=== PATIENT | male | born 1990 | race Caucasian/White ===

== ENCOUNTER 2020-04-20 17:44 | Emergency (ER) | payer MEDICAID, SELFPAY ==
[2020-04-20 18:10] VITALS: BP 140/95; PULSE 96; RESP 14; TEMP 36.8; O2SAT 99
[2020-04-20 18:49] LABS: Basophils Absolute Auto 0.1 K/mm3 (0.0-0.1); Basophils Percent Auto 0.4 % (0.2-1.2); Eosinophils Absolute Auto 0.8 K/mm3 (0-0.3); Hematocrit 42.7 % (42.0-52.0); Hemoglobin 14.3 g/dL (14.0-18.0); Immature Granulocyte Absolute 0.19 K/mm3 (0.00-0.031); Lymphocytes Percent Auto 23.1 % (18.3-44.2); Mean Corpuscular HGB Conc 33.5 g/dl (32-36); Mean Corpuscular Hemoglobin 30.5 pg (26-34); Mean Platelet Volume 9.1 fl (7.4-10.4); Monocytes Absolute Auto 1.4 K/mm3 (0.1-0.6); Monocytes Percent Auto 7.1 % (2.6-8.5); Neutrophils Absolute Auto 12.6 K/mm3 (1.3-6.7); Neutrophils Percent Auto 64.4 % (45.5-73.1); Platelet Count Result 389 k/mm3 (150-375); Red Blood Count 4.69 M/mm3 (4.6-6.20); Red Cell Distribution Width 13.1 % (11.5-14.5); White Blood Count 19.5 K/mm3 (4.5-10.0)
--- NOTE | 2020-04-20 18:56 | PC.NURSE ---
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
[2020-04-20 19:06] LABS: Alanine Aminotransferase 27 U/L (4-50); Albumin Level 3.8 g/dL (3.5-5.1); Alkaline Phosphatase 71 U/L (38-126); Anion Gap 5 mmol/L (8-16); Aspartate Amino Transferase 26 U/L (17-59); Bilirubin,Total 0.2 mg/dL (0.2-1.3); Blood Urea Nitrogen 7 mg/dL (9-20); CRP 1.2 mg/dL (<1.0); Calcium 9.2 mg/dL (8.4-10.2); Carbon Dioxide 31 mmol/L (22-30); Chloride 104 mmol/L (98-107); Estimated CRCL calculation 127 ml/min; Estimated Glomerular Filt Rate > 60; Glucose 88 mg/dL (75-110); Potassium 4.2 mmol/L (3.4-5.0); Sodium 140 mmol/L (137-145)
--- NOTE | 2020-04-20 19:31 | PC.NURSE ---
report received at this time. pt resting on stretcher with antibiotics. pt provided with food, denies any needs/concerns. will continue to monitor pt for baseline status changes, updated on poc.
--- NOTE | 2020-04-20 19:42 | ED.GENADULT ---
HPI - General Adult General Chief complaint: Wound/Laceration <Everton Rodrigez PA-C - Last Filed: 04/20/20 19:50> Stated complaint: upper extremity problem <Everton Rodrigez PA-C - Last Filed: 04/20/20 19:50> Time Seen by Provider: 04/20/20 17:57 <Everton Rodrigez PA-C - Last Filed: 04/20/20 19:50> Source: patient and family <Everton Rodrigez PA-C - Last Filed: 04/20/20 19:50> Mode of arrival: ambulatory <Everton Rodrigez PA-C - Last Filed: 04/20/20 19:50> Limitations: no limitations <Everton Rodrigez PA-C - Last Filed: 04/20/20 19:50> History of Present Illness HPI narrative: Patient is a 29-year-old male who presents with an injection abscess of the proximal left forearm patient with longstanding history of IV drug abuse patient notes that this is been present for approximately 7 days. Patient is currently with a family member who is an over the road concrete sculptor taking the patient with him to help him detox. Patient notes he has been having some arthralgias but denies vomiting diarrhea fever. Patient has not taken anything for his symptoms and has not been seen for this complaint. Patient has had similar occurrences in the past. Patient is hearing impaired and an nail setter was utilized <Everton Rodrigez PA-C - Last Filed: 04/20/20 19:50> Related Data Allergies/adverse reactions: Allergies Allergy/AdvReac Type Severity Reaction Status Date / Time No Known Allergies Allergy Verified 04/20/20 18:18 <Everton Rodrigez PA-C - Last Filed: 04/20/20 19:50> Review of Systems Review of Systems: All systems reviewed & are unremarkable except as noted in HPI and below <Everton Rodrigez PA-C - Last Filed: 04/20/20 19:50> PMFSH Social History Social History: Social History Smoking status: Current every day smoker Substance use type: heroin and IV drugs <RENETTA Gee Last Filed: 04/20/20 19:50> Exam Narrative: Exam Narrative: GENERAL: Well-appearing, well-nourished, and in no acute distress. HEAD: Normocephalic, atraumatic. EYES: PERRLA and EOMI. ENT: Nares clear, no rhinorrhea or epistaxis. Mucous membranes moist. CHEST: Clear to auscultation. No respiratory distress. No wheezes rales or rhonchi HEART: Regular rate and rhythm. No murmur heard. Normal peripheral pulses. EXTREMITIES: Normal range of motion. No edema. SKIN: Warm, dry, no rash. Patient with injection abscess of the proximal left forearm with roughly 4 cm of erythema induration and fluctuance no lymphangitic streaking swelling does not extend into the distal forearm or above the elbow joint abscess is localized to the anterior aspect of the forearm and not circumferential NEURO: No focal deficits. Alert and oriented x3. Neurovascularly intact PSYCH: Normal mood and affect. <Everton Rodrigez PA-C - Last Filed: 04/20/20 19:50> Course Course Emergency Course: Patient aware of case findings treatment plan and diagnosis discussion with surgeon was given fluids and IV antibiotics in the emergency department as well as I&D. Patient agreeing to follow-up as instructed and they feel comfortable with the plan for outpatient reevaluation <RENETTA Gee Last Filed: 04/20/20 19:50> Consultations Consultation #1: Discussed case with general surgery who agrees that the patient can be safely discharged with outpatient reevaluation instructions to return and agrees with the management at this time <RENETTA Gee Last Filed: 04/20/20 19:50> Date: 04/20/20 <RENETTA Gee Last Filed: 04/20/20 19:50> Time: 19:47 <RENETTA Gee Last Filed: 04/20/20 19:50> Vital Signs Vital signs: Vital Signs Temperature 36.8 C 04/20/20 18:10 Pulse Rate 96 04/20/20 18:10 Respiratory Rate 14 04/20/20 18:10 Blood Pressure 140/95 H 04/20/20 18:10 Pulse Oximetry 99 04/20/20 18
[2020-04-20 20:18] VITALS: BP 146/98; PULSE 92; RESP 17; O2SAT 98
== END 2020-04-20 20:20 | disposition home or self-care (01) ==
PROVIDERS: Emergency Medicine Emergency Medical Services; Emergency Provider Emergency Medicine
DX: L02.414 Cutaneous abscess of left upper limb (principal); F17.210 Nicotine dependence, cigarettes, uncomplicated
CPT/HCPCS: 10061; 36415; 80053; 85025; 86140; 87070; 87075; 87077; 87205; 96365; 96375; 99284; J0690; J3370